=== PATIENT | female | born 1955 | race Caucasian/White ===

== ENCOUNTER 2016-10-30 14:04 | Emergency (ER) | payer BC ==
--- NOTE | ~2016-10-30 | US85 ---
[facility] A Service of [facility] RADIOLOGY TEXT RESULTS PATIENT: RIKA HARKINS LOCATION: [place] : 51 UNIT #: [id number] AGE: [address]: Radha Ambrose APRN SEX: F ORDER DR: [id number] [facility] [address] [place], [place] [address] [id number] E MR#: [id number] Acc #: [id number] NAME: RIKA HARKINS : 1955 SEX: F STUDY DATE/TIME: 10/30/2016 16:09 UNIT: CFTX ROOM: STUDY DESCRIPTION: [facility] Attending Physician: Radha Ambrose A.P.R.N. Ordering Physician: Ed Yoseph Rogers M.D. Primary Care Physician: Joe Hurtado M.D. MEDICAL IMAGING REPORT This report is preliminary unless electronic signature is present EXAM Left leg vein Doppler. DATE OF EXAM 10/30/2016 INDICATION Left leg pain for the last 3 days. TECHNIQUE Venous ultrasound examination of the left lower extremity was performed using grayscale, spectral Doppler and color flow Doppler imaging. FINDINGS The examination is negative. There is no evidence of left lower extremity deep venous thrombus from the groin to the lower calf. Visualized greater saphenous vein is also patent. IMPRESSION Negative examination. No evidence of left lower extremity DVT. Dictated by... Santo Rachel Jr., M.D. THIS IS AN ELECTRONICALLY VERIFIED REPORT Santo Rachel Jr., M.D. at 10/31/2016 7:54 AM DANEK/alta [facility] A Service [facility] RADIOLOGY TEXT RESULTS PATIENT: RIKA HARKINS LOCATION: [place] : [birth year] UNIT #: [id number] AGE: [address]: Radha Ambrose APRN SEX: F ORDER DR: TD: 10/30/2016 20:13 JOB #: [id number] MEDICAL IMAGING REPORT Page 1 of 1 COPY
[~2016-10-30 14:04] MED LIST: BACTRIM DS TABL1 TA1 PO
== END 2016-10-30 17:09 | disposition home or self-care (01) ==
LOC: CFTX 14:04
DX: M25.562 Pain in left knee (principal); F17.210 Nicotine dependence, cigarettes, uncomplicated
CPT/HCPCS: 29530; 93971; 99284

== ENCOUNTER → 2016-11-13 | Outpatient (CLI) | payer BC ==
--- NOTE | ~2016-11-13 | BD1 ---
[facility] A Service of [facility] & [facility] RADIOLOGY TEXT RESULTS PATIENT: RIKA HARKINS LOCATION: [facility] : [birth year] UNIT #: [id number] AGE: [address]: Fletcher Rosas MD SEX: F ORDER DR: [id number] [facility] [address] [place], [place] [address] [id number] O MR#: [id number] Acc #: [id number] NAME: RIKA HARKINS : 1955 SEX: F STUDY DATE/TIME: 11/13/2016 10:43 UNIT: [facility] ROOM: STUDY DESCRIPTION: BD Dexa Bone Dens 1+ Site Attending Physician: Fletcher Rosas M.D. Referring Physician: Fletcher Rosas M.D. Ordering Physician: Fletcher Rosas M.D. Primary Care Physician: Joe Hurtado M.D. MEDICAL IMAGING REPORT This report is preliminary unless electronic signature is present EXAM DXA scan, 11/13/2016. HISTORY Status post menopause with no hormone replacement therapy. Osteopenia. Hysterectomy at age 26. Hypertension with blood pressure medication for 3 years. Smoking history for 30 years. Stress fracture of knee and ankle in last 10 years. FINDINGS Bone mineral density in the lumbar spine from L1 through L4 was 0.711 g/cm2, which is 3.1 standard deviations below the mean when compared to the young adult reference population, which is characteristic of osteoporosis. This is 1.4 standard deviations below the mean when compared to the age-matched population. Bone mineral density in the left femoral neck was 0.608 g/cm2, which is 2.2 standard deviations below the mean when compared to the young adult reference population, which is characteristic of osteopenia. This is 0.7 standard deviation below the mean when compared to the age-matched population. IMPRESSION Bone mineral density in the lumbar spine characteristic of osteoporosis and within the left hip characteristic of osteopenia. Dictated by... Laci Fagan M.D. THIS IS AN ELECTRONICALLY VERIFIED REPORT [facility] A Service of [facility] & [facility] RADIOLOGY TEXT RESULTS PATIENT: RIKA HARKINS LOCATION: [facility] : 51 UNIT #: [id number] AGE: [address]: Fletcher Rosas MD SEX: F ORDER DR: Laci Fagan M.D. at 11/14/2016 2:10 PM SAMY/mario TD: 11/13/2016 15:54 JOB #: [id number] MEDICAL IMAGING REPORT Page 1 of 1 COPY
== END | disposition home or self-care (01) ==
LOC: CWCC 10:29
DX: M81.0 Age-related osteoporosis without current pathological fracture (principal); Z87.312 Personal history of (healed) stress fracture; M85.88 Other specified disorders of bone density and structure, other site
CPT/HCPCS: 77080

== ENCOUNTER 2016-12-24 12:06 | Emergency (ER) | payer BC ==
--- NOTE | ~2016-12-24 | CR127 ---
[facility] A Service of [facility] RADIOLOGY TEXT RESULTS PATIENT: RIKA HARKINS LOCATION: [facility] : 51 UNIT #: [id number] AGE: [address]: Radha Ambrose APRN SEX: F ORDER DR: [id number] [facility] [address] [place], [place] [address] [id number] E MR#: [id number] Acc #: [id number] NAME: RIKA HARKINS : 1955 SEX: F STUDY DATE/TIME: 12/24/2016 UNIT: [facility] ROOM: STUDY DESCRIPTION: CR Foot Complete Min 3 View Rt Attending Physician: Radha Ambrose A.P.R.N. Ordering Physician: [facility] Primary Care Physician: Joe Hurtado M.D. MEDICAL IMAGING REPORT This report is preliminary unless electronic signature is present EXAM Right foot 3 views 12/24/2016 13:07 hours HISTORY 61-year-old with pain and swelling in the mid foot since yesterday. History of heel spur. No history of injury. COMPARISON None. FINDINGS AP, lateral and oblique views demonstrate dorsal soft tissue swelling over the tarsometatarsal junctions. No fracture or dislocation is seen. There is no periosteal reaction or bony destruction. There is plantar calcaneal spurring. There is mild deformity of the distal aspect of the proximal phalanx of the fourth toe felt likely congenital or related to old trauma. IMPRESSION Dorsal soft tissue swelling over the tarsal metatarsal junction region with no underlying fracture, dislocation or periosteal reactions seen. Dictated by... Juani Zurita M.D. THIS IS AN ELECTRONICALLY VERIFIED REPORT Juani Zurita M.D. at 12/24/2016 7:31 PM SMM/isaias TD: 12/24/2016 14:58 JOB #: [id number] MEDICAL IMAGING REPORT Page 1 of 1 COPY
== END 2016-12-24 14:18 | disposition home or self-care (01) ==
LOC: CFTX 12:06 → CED 12:06 → CFTX 13:49
DX: R60.0 Localized edema (principal); R03.0 Elevated blood-pressure reading, without diagnosis of hypertension; Z90.710 Acquired absence of both cervix and uterus; Z88.5 Allergy status to narcotic agent
CPT/HCPCS: 29405; 73630; 99283